=== PATIENT | male | born 1950 | race Caucasian/White ===

== ENCOUNTER → 2018-06-05 | Outpatient (CLI) | payer BC ==
[~2018-06-05] MED LIST: ALPR.25 PO; ALPRAZOLAM PO; Bactrim 400-801 EACH PO; CVS DISPOSABLE399 ML PR; Complete Senio1 EACH PO; Flomax0.4 MG PO; Gas-X80 MG PO; IBUP600 PO; LEVFLO500 PO; METO50 PO; METOPROLOL PO; MULVIT PO; Norco 5-325 Ta1 EACH PO; Zofran Odt4 MG PO; Zofran Odt4 MG SL
[2018-06-05 13:35] LABS: Stool Occult Bld Immuno 1 Negative (NEGATIVE)
== END | disposition home or self-care (01) ==
LOC: LAB SHORT 11:15 → LAB 11:15
PROVIDERS: Hospitalist
DX: Z12.11 Encounter for screening for malignant neoplasm of colon (principal)
CPT/HCPCS: G0328

== ENCOUNTER → 2023-01-12 | Outpatient (CLI) | payer BC ==
[2023-01-12 11:41] LABS: Protein, Urine Quantitative 22.8 mg/dL (0.0-11.9)
== END | disposition home or self-care (01) ==
LOC: LAB SHORT 09:28 → LAB 09:28
PROVIDERS: Internal Medicine Nephrology
DX: N18.30 Chronic kidney disease, stage 3 unspecified (principal); D63.1 Anemia in chronic kidney disease; D75.1 Secondary polycythemia; N25.81 Secondary hyperparathyroidism of renal origin; E55.9 Vitamin D deficiency, unspecified; E78.00 Pure hypercholesterolemia, unspecified; R76.9 Abnormal immunological finding in serum, unspecified; R94.5 Abnormal results of liver function studies; R94.6 Abnormal results of thyroid function studies
CPT/HCPCS: 81050; 82043; 82570; 84156

== ENCOUNTER → 2023-06-30 | Outpatient (CLI) | payer BC | LOC: LAB 08:59 → LAB SHORT 08:59 | DX: N20.0 Calculus of kidney (principal) | CPT/HCPCS: 81050 ==

== ENCOUNTER → 2023-09-29 | Outpatient (CLI) | payer BC | LOC: LAB 10:11 → LAB SHORT 10:11 | DX: N20.9 Urinary calculus, unspecified (principal) | CPT/HCPCS: 81050 ==

== ENCOUNTER → 2024-01-04 | Outpatient (CLI) | payer BC ==
[2024-01-10 10:15] LABS: CALCIUM, URINE - PER 24H 207 mg/d (100-250); CALCIUM, URINE - PER VOLUME 18.8 mg/dL; CHLORIDE, URINE - PER 24H 152 mmol/d (140-250); CHLORIDE, URINE - PER VOLUME 138 mmol/L; CITRIC ACID, URINE - PER 24H 484 mg/d (320-1240); CITRIC ACID,URINE - PER VOLUME 440 mg/L; CREATININE, URINE - PER 24H 1771 mg/d (800-2100); CREATININE, URINE - PER VOLUME 161 mg/dL; HOURS COLLECTED 24 hr; MAGNESIUM, URINE - PER VOLUME 6.4 mg/dL; MAGNESIUM, URINE PER 24H 70 mg/d (12-199); OXALATE, URINE - PER 24H 31 mg/d (16-49); OXALATE, URINE - PER VOLUME 28 mg/L; PHOSPHORUS, URINE - PER 24H 1177 mg/d (400-1300); PHOSPHORUS, URINE - PER VOLUME 107 mg/dL; POTASSIUM, URINE - PER 24H 75 mmol/d (25-125); POTASSIUM, URINE - PER VOLUME 68 mmol/L; SODIUM, URINE - PER 24H 155 mmol/d (51-286); SODIUM, URINE - PER VOLUME 141 mmol/L; SULFATE, URINE - PER 24H 30 mmol/d (6-30); SULFATE, URINE - PER VOLUME 27 mmol/L; TOTAL VOLUME 1100 mL; URIC ACID, URINE - PER 24H 453 mg/d (250-750); URIC ACID, URINE - PER VOLUME 41.2 mg/dL; URINE SUPERSATURATION INTERP Abnormal; URINE SUPERSATURATION, CAHPO4 0.52; URINE SUPERSATURATION, CAOX 9.31; URINE SUPERSATURATION, UA CALC 2.63
== END ==
LOC: LAB 14:22 → LAB SHORT 14:22 → LAB FUT 12-12 15:15
PROVIDERS: Urology
DX: N20.0 Calculus of kidney (principal)
CPT/HCPCS: 81003; 81050; 82131; 82140; 82340; 82436; 82507; 82570; 83735; 83935; 83945; 84105; 84133; 84300; 84392; 84560

== ENCOUNTER → 2024-12-23 | Outpatient (CLI) | payer BC ==
[2024-12-28 11:15] LABS: CALCIUM, URINE - PER 24H 182 mg/d (100-250); CALCIUM, URINE - PER VOLUME 7.9 mg/dL; CHLORIDE, URINE - PER 24H 212 mmol/d (140-250); CHLORIDE, URINE - PER VOLUME 92 mmol/L; CITRIC ACID, URINE - PER 24H 575 mg/d (320-1240); CITRIC ACID,URINE - PER VOLUME 250 mg/L; CREATININE, URINE - PER 24H 1725 mg/d (800-2100); CREATININE, URINE - PER VOLUME 75 mg/dL; HOURS COLLECTED 24 hr; MAGNESIUM, URINE - PER VOLUME 3.4 mg/dL; MAGNESIUM, URINE PER 24H 78 mg/d (12-199); OXALATE, URINE - PER 24H 21 mg/d (16-49); OXALATE, URINE - PER VOLUME 9 mg/L; PHOSPHORUS, URINE - PER 24H 1196 mg/d (400-1300); PHOSPHORUS, URINE - PER VOLUME 52 mg/dL; POTASSIUM, URINE - PER 24H 64 mmol/d (25-125); POTASSIUM, URINE - PER VOLUME 28 mmol/L; SODIUM, URINE - PER 24H 239 mmol/d (51-286); SODIUM, URINE - PER VOLUME 104 mmol/L; SULFATE, URINE - PER 24H 25 mmol/d (6-30); SULFATE, URINE - PER VOLUME 11 mmol/L; TOTAL VOLUME 2300 mL; URIC ACID, URINE - PER 24H 531 mg/d (250-750); URIC ACID, URINE - PER VOLUME 23.1 mg/dL; URINE SUPERSATURATION INTERP Normal; URINE SUPERSATURATION, CAHPO4 0.45; URINE SUPERSATURATION, CAOX 2.27; URINE SUPERSATURATION, UA CALC 0.83
== END ==
LOC: LAB 09:15 → LAB SHORT 09:15 → LAB FUT 07-25 11:15
PROVIDERS: Nurse Practitioner Acute Care
DX: N20.0 Calculus of kidney (principal); N20.9 Urinary calculus, unspecified
CPT/HCPCS: 81003; 81050; 82131; 82140; 82340; 82436; 82507; 82570; 83735; 83935; 83945; 84105; 84133; 84300; 84392; 84560